=== PATIENT | male | born 1975 | race Caucasian/White ===

== ENCOUNTER 2023-08-07 11:51 | Emergency (ER) | payer OTHER, SELFPAY ==
--- NOTE | 2023-08-07 12:29 | ED.URI ---
HPI - URI/Sore Throat General Chief Complaint: General Medical Stated Complaint: cold like symptoms Time Seen by Provider: 08/07/23 12:53 Source: patient and RN notes reviewed Mode of arrival: ambulatory Limitations: no limitations History of Present Illness HPI Narrative: This is a 48-year-old male, with no known medical problems, presenting to the emergency department complaints of cough, sore throat, headache and sinus congestion x4 days. Patient reports that the headache does not worsened with leaning forward. He has been taking DayQuil which provides him with some relief. 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 He denies any fevers, chills, chest pain, shortness of breath, abdominal pain, nausea, vomiting or diarrhea. No other complaints or concerns at this time. MD elicited complaint: cough, sore throat and nasal congestion Consistency: constant Severity: moderate Description of mucous: clear and watery Able to tolerate fluids by mouth: Yes Exacerbating factors: nothing Relieving factors: OTC cold medicine Associated symptoms: headache, rhinorrhea, nasal congestion and sore throat Treatments prior to arrival: cold medicine Related Data Previous Rx's Medication Instructions Recorded benzonatate 200 mg capsule 200 mg PO TID PRN cough #15 caps 08/07/23 Allergies Allergy/AdvReac Type Severity Reaction Status Date / Time No Known Allergies Allergy Verified 08/07/23 12:30 Review of Systems Review of Systems: Yes all other systems are reviewed and are negative Constitutional: Constitutional: Reports as per [facility] Past Medical History Attestation statement: The following information was validated with the patient. Social History Social History Advance Directives: No Physical Exam Vital Signs: Vital Signs: Last Vital Signs Temp 98 F 08/07/23 12:30 Pulse 98 08/07/23 12:30 Resp 18 08/07/23 12:30 BP 113/77 08/07/23 12:30 Pulse Ox 95 08/07/23 12:30 O2 Del Method Room Air 08/07/23 12:30 BMI result Body Mass Index 34.3 Const: General: cooperative, comfortable and no acute distress Orientation/consciousness: patient oriented x3 Limitations: no limitations HEENT: Other: No frontal, maxillary or ethmoid sinus tenderness palpation No worsening sinus pressure with leaning forward Head: Yes normal to inspection, Yes normocephalic and Yes atraumatic Ears: hearing grossly normal bilaterally and TM's normal bilaterally General nose exam: Normal external nose present Face and sinus: Yes normal facial exam Mouth: Normal oral and palatal mucosa present, oropharynx normal and moist mucous membranes Throat: Yes posterior oropharynx normal, Yes tonsils normal and Yes uvula midline Eyes: General: appearance normal, both eyes and all related structures Eyelids: Yes eyelids normal Conjunctivae: conjunctivae normal Sclerae: sclerae normal Pupils: Equal, round and reactive pupils present EOM: EOMs intact bilaterally Neck: Neck: Yes normal visual inspection, Yes full ROM and Yes no lymphadenopathy Lymphatic: no lymphadenopathy noted Chest: Chest palpation & inspection: normal inspection of the chest Resp: Effort & Inspection: normal respiratory effort and able to speak in complete sentences Auscultation: clear to auscultation bilaterally, no crackles, no rales, no rhonchi and no wheezes Cardio: Rate: regular rate Rhythm: regular rhythm Heart sounds: S1 normal heart sound present and S2 normal heart sound present GI: Inspection: Yes normal to inspection Skin: General skin exam: no rashes or lesions noted Trauma: no lacerations or abrasions Wounds: no wounds Neuro: General: patient oriented x3 and moves all extremities Cranial nerves: Yes Equal, round and reactive pupils present Extrem: General: Yes normal to inspection Right upper extremity: normal to inspection Left upper extremity: normal to inspection Right lower extremity: normal to inspection Left lower extremity: normal to inspection Course Course Course Narrative: This is a rapid medical exam. Deferred additional HPI, ROS, PE to primary provider. 48 yo male with no known medical history here with complaints sore throat, headache, cough x several days. Took home covid test which was negative. Will send viral testing, VSS Medical Decision Making Medical Decision Making MDM Narrative: This is a 48-year-old male, with no known medical problems, presenting to the emergency department for evaluation of cough, sore throat, headaches, and sinus pressure x4 days. On arrival, vital signs within normal limits. Patient is nontoxic appearing. Patient has no frontal, maxillary or ethmoid sinus tenderness palpation. Headache does not worsened with leaning forward. Lungs clear to auscultation bilaterally, oropharynx normal. TMs unremarkable. He is neurologically intact. Differential diagnoses include influenza, COVID, flu, strep pharyngitis. Less likely peritonsillar abscess, pneumonia. Discussed with patient that his symptoms are likely viral in nature. Discussed that he does not need antibiotics at this time however very important to use [id number] decongestants like Sudafed PE or nasal sprays, he declines wanting a prescription for these at this time. Patient given Tessalon Perles to be taken as needed. Discussed the importance of staying well hydrated, getting plenty of rest. He understands and agrees with plan. Patient stable for discharge Differential Diagnosis Differential Diagnoses: The differential diagnosis associated with the presentation includes See above Lab Data MDM Lab Attestation statement: I reviewed the patient's lab results. Negative influenza, RSV, COVID and strep Labs: Lab Results 08/07/23 Range/Units 12:36 Influenza Type A (PCR) NEGATIVE (Negative) Influenza Type B (PCR) NEGATIVE (Negative) RSV RNA Qual (PCR) NEGATIVE (Negative) SARS-CoV-2 RNA (RT-PCR) NEGATIVE (Negative) S. pyogenes GrpA ALEXANDER Negative (Negative) Discharge Plan Discharge Clinical Impression: Acute upper respiratory infection Patient Disposition: Home, Self-Care Instructions: Upper Respiratory Infection (ED) Additional Instructions: You were seen in the emergency department due to cough, sore throat, headache and sinus pressure. You tested negative for COVID, flu, RSV, and strep throat. Your physical exam was reassuring today. You likely have a virus, which take several days to get better. You do not need antibiotics at this time. It is very important to get plenty of rest, drink plenty of fluids and treat your symptoms. Taking medication like Sudafed PE, worse sinus decongestants can help you with your congestion. I am also recommending you alternate between Tylenol and Motrin as needed. I am prescribing you a cough medicine, this is called Tessalon, take this as needed for cough. Any new or worsening symptoms occur including but not limited to chest pain or shortness of breath, please return for re-evaluation. Prescriptions: New benzonatate 200 mg capsule 200 mg PO TID PRN (Reason: cough) Qty: 15 0RF Stand Alone Forms: Work/School Release
[2023-08-07 12:30] VITALS: BP 113/77; PULSE 98; RESP 18; TEMP 36.6; O2SAT 95; BMI 34.3
[2023-08-07 12:57] LABS: IDNOW Serial# 08D9AD1C; Strep A Nucleic Acid Negative (Negative)
[2023-08-07 13:27] LABS: Influenza A PCR NEGATIVE (Negative); Influenza B PCR NEGATIVE (Negative); Resp Syncy Virus RNA Qual PCR NEGATIVE (Negative); SARS COV2 PCR INHOUSE NEGATIVE (Negative)
== END 2023-08-07 14:25 | disposition home or self-care (01) ==
PROVIDERS: Nurse Practitioner Family; Emergency Provider Emergency Medicine
DX: J06.9 Acute upper respiratory infection, unspecified (principal); R05.9 Cough, unspecified; J02.9 Acute pharyngitis, unspecified; R51.9 Headache, unspecified; Z11.52 Encounter for screening for COVID-19; Z20.828 Contact with and (suspected) exposure to other viral communicable diseases
CPT/HCPCS: 0241U; 87651; 99282; 99283

== ENCOUNTER 2023-09-01 15:40 | Outpatient (REF) | payer OTHER, SELFPAY | END 2023-09-01 15:41 | disposition home or self-care (01) | LOC: HO.MRI 15:40 | PROVIDERS: Visit Provider Emergency Medicine | DX: Z13.89 Encounter for screening for other disorder (principal) ==

== ENCOUNTER 2023-10-03 14:25 | Outpatient (REF) | payer OTHER, SELFPAY ==
--- NOTE | ~2023-10-03 | CT_ITS ---
EXAMINATION: CT HEAD WITHOUT CONTRAST CLINICAL INFORMATION: Syncope and collapse COMPARISON: None available. TECHNIQUE: Contiguous axial imaging was performed from the skull base to vertex without intravenous administration of contrast. This CT examination was performed using dose optimization techniques as appropriate, variously including the following: *Automated exposure control *Adjustment of mA and/or kV according to patient size (this includes techniques or standardized protocols for targeted exams where dose is matched to indication/reason for exam; i.e. extremities or head) *Use of iterative reconstruction technique DLP: 804 mGy-cm FINDINGS: The ventricles and sulci are normal in size and configuration. No acute hemorrhage, mass effect or shift is evident. Be-white differentiation is maintained. In the posterior fossa, the brainstem, cerebellum and fourth ventricle image normally. The orbits and calvarium are intact. The paranasal sinuses and mastoid air cells are well pneumatized and clear. CT/CT head/brain wo IV con IMPRESSION: 1. Unremarkable noncontrast brain CT. No acute hemorrhage, mass effect or shift.
== END 2023-10-03 14:26 | disposition home or self-care (01) ==
LOC: HO.CT 14:25
PROVIDERS: PCP Family Medicine; Visit Provider Family Medicine
DX: R55 Syncope and collapse (principal)
CPT/HCPCS: 70450

== ENCOUNTER 2023-10-05 09:00 | Emergency (ER) | payer OTHER, SELFPAY ==
--- NOTE | ~2023-10-05 | CT_ITS ---
EXAMINATION: CT scan left shoulder was performed without contrast CLINICAL INFORMATION: Left arm pain status post fall. COMPARISON: X-ray the left shoulder performed same day TECHNIQUE: CT scan left shoulder was performed without contrast with reconstruction imaging performed at the acquisition workstation. FINDINGS: Glenohumeral joint: Normal. Acromioclavicular joint: Small well-corticated ossification along the superior aspect of the AC joint likely sequela of degenerative change or old partial tearing of the capsule. AC joint otherwise unremarkable. No acute abnormality. No fracture. No joint effusion. Surrounding bone and soft tissues normal. CT/CT shoulder LT wo IV con IMPRESSION: 1. No acute abnormality. 2. Small well-corticated ossification along the superior aspect of the AC joint likely sequela of degenerative change or old partial tearing of the capsule.
--- NOTE | ~2023-10-05 | XR_ITS ---
EXAMINATION: XR SHOULDER, LEFT CLINICAL INFORMATION: Fall limited range of motion COMPARISON: None available. TECHNIQUE: AP external rotation, Grashey, scapular Y, and axillary views of the left shoulder. FINDINGS: The bones and soft tissues are normal. No fracture. Glenohumeral and acromioclavicular alignment is anatomic with normal joint space. No abnormal soft tissue calcifications. XR/XR shoulder LT min 2V IMPRESSION: Normal left shoulder.
[2023-10-05 09:04] VITALS: BP 125/77; PULSE 80; RESP 19; TEMP 36.6; O2SAT 99; BMI 34.4
--- NOTE | 2023-10-05 09:25 | ED.EXTPRO ---
HPI - Extremity Problem General Chief complaint: Extremity Injury, Upper Stated complaint: Fall/L shoulder pain leg pain Time Seen by Provider: 10/05/23 09:10 Source: patient, RN notes reviewed and old records reviewed Mode of arrival: ambulatory Limitations: no limitations History of Present Illness HPI Narrative: 48 year old right hand dominant male with no significant pmhx presents to the ED today for evaluation of left shoulder pain s/p mechanical fall 3 days ago. Per patient, he slipped and fell while in the shower, landing on the left side of his body. Denies head strike or LOC. Not on anticoagulation. Endorses left rotator cuff tear identified 6 months ago while at PCPs office for corticosteroid injections. He was contacted for outpatient MRI however has not scheduled this as his pain has been fairly well controlled. He admits that since the fall, he has been unable to fully raise his left arm due to his shoulder pain. Reports taking Aleve at 0800 this morning prior to arrival. Denies numbness/tingling/weakness of LUQ. Related Data Previous Rx's ?Medication ?Instructions ?Recorded benzonatate 200 mg capsule 200 mg PO TID PRN cough #15 caps 08/07/23 cyclobenzaprine 5 mg tablet 5 mg PO Q8H PRN muscle spasm #10 10/05/23 tabs lidocaine 5 % topical patch 1 patch topical DAILY #15 ea 10/05/23 (Lidoderm) naproxen 500 mg tablet 500 mg PO Q8-12H PRN pain (scale 10/05/23 score 4-6) #14 tabs Allergies Allergy/AdvReac Type Severity Reaction Status Date / Time No Known Allergies Allergy Verified 10/05/23 09:05 Review of Systems Review of Systems: Constitutional: No fever, chills, fatigue, night sweats, weight changes ENT/Mouth: No ear pain, hearing loss, nasal congestion, sinus pain, rhinorrhea, sore throat Eyes: No eye pain, swelling, redness, vision changes, discharge Cardio: No chest pain, palpitations, GUTHRIE, orthopnea, peripheral edema Pulm: No SOB, cough, sputum, wheezing, dyspnea, hemoptysis GI: No nausea, vomiting, hematemesis, abdominal pain, diarrhea, constipation, hematochezia, melena : No irregular bleeding, dysuria, frequency, urgency, hesitancy, hematuria, flank pain, urinary flow changes, urinary incontinence or retention MSK: No back pain, neck pain, joint pain, myalgias, +left shoulder pain Skin: No lesions, rashes Neuro: No weakness, numbness, paresthesias, LOC, dizziness, headache Psych: No anxiety/panic, depression, SI/HI, AH/VH All other systems reviewed and are negative. REPLACED BY [facility] Past Medical History Attestation statement: The following information was validated with the patient. Source: old records reviewed and nursing notes reviewed Social History Social History Advance Directives: No Advance Directives Information Provided: No Physical Exam Vital Signs: Vital Signs: Last Vital Signs Temp 96.8 F 10/05/23 11:39 Pulse 63 10/05/23 11:39 Resp 16 10/05/23 11:39 BP 133/85 10/05/23 11:39 Pulse Ox 99 10/05/23 11:39 O2 Del Method Room Air 10/05/23 11:39 BMI result Body Mass Index 34.4 Vital signs stable Const: General: cooperative, healthy appearing, comfortable and no acute distress Orientation/consciousness: patient oriented x3 Limitations: no limitations HEENT: Head: Yes normal to inspection, Yes No palpable skull fracture present, Yes normocephalic, Yes atraumatic, No Jasso's sign, No raccoon eyes and No periorbital ecchymosis Eyes: General: appearance normal, both eyes and all related structures Conjunctivae: conjunctivae normal Sclerae: sclerae normal Pupils: Equal, round and reactive pupils present Neck: Other: No midline cervical spinous tenderness or step-off deformity Neck: Yes normal visual inspection, Yes full ROM and Yes no lymphadenopathy Chest: Chest palpation & inspection: normal inspection of the chest and normal palpation of entire chest wall Resp: Effort & Inspection: normal respiratory effort and able to speak in complete sentences Auscultation: clear to auscultation bilaterally Cardio: Rate: regular rate Rhythm: regular rhythm GI: Inspection: Yes normal to inspection and No abdominal wall ecchymosis Back/Spine/Pelvis: Other: No midline spinous tenderness or step off deformity. No paraspinal muscle tenderness. Skin: General skin exam: no rashes or lesions noted Neuro: General: patient oriented x3, gait normal and no focal motor deficits Cranial nerves: Yes Equal, round and reactive pupils present Extrem: Other: + left shoulder without overlying skin changes, joint edema or deformity. Nontender to palpation over the glenohumeral joint, AC joint, or clavicle. No palpable deformity, warmth or fluctuance. Limited range of motion to abduction of left shoulder. Can only raise left arm about 75? before pain is elicited. Left shoulder pain elicited with abduction against resistance. Tax Evaluator strength intact. 2+ radial pulse intact. General: Yes normal to inspection and Yes capillary refill normal Course Course Course Narrative: 1149-- x-ray of left shoulder ordered prior to my assumption of care does not demonstrate acute fracture or dislocation. Given patient's history and physical exam findings, CTA of left shoulder was ordered to assess for possible ligament/tendon injury. CT left shoulder does not demonstrate acute fracture however does show a small well corticated ossification along the superior aspect of the AC joint likely sequela of degenerative change or old partial tearing of the capsule. This correlates with known rotator cuff injury. Will place patient in shoulder sling. Advised him to follow-up with PCP and Orthopedics as he will require outpatient MRI and likely surgery. He expresses understanding and will call tomorrow. Patient has remained stable throughout ED visit today. Discussed worrisome signs and symptoms and when to return to the ED. All questions answered at this time. Patient is agreeable with disposition and stable for discharge. Medications Administered Discontinued Medications Generic Name Dose Route Start Last Admin Trade Name Freq PRN Reason Stop Dose Admin Acetaminophen 975 mg 10/05/23 09:46 10/05/23 09:56 Acetaminophen 325 Mg Tablet PO 10/05/23 09:47 975 mg ONCE ONE Administration Lidocaine 1 patch 10/05/23 09:46 10/05/23 09:56 Lidocaine 4 % Patch Adh..Patch TRANSDERMA 10/05/23 09:47 1 patch ONCE ONE Administration Protocol Medical Decision Making Medical Decision Making MDM Narrative: 48 year old right hand dominant male with no significant pmhx presents to the ED today for evaluation of left shoulder pain s/p mechanical fall 3 days ago. Vital signs stable. He is nontoxic-appearing and in no acute distress. left shoulder without overlying skin changes, joint edema or deformity. Nontender to palpation over the glenohumeral joint, AC joint, or clavicle. No palpable deformity, warmth or fluctuance. Limited range of motion to abduction of left shoulder. Can only raise left arm about 75? before pain is elicited. Left shoulder pain elicited with abduction against resistance. Tax Evaluator strength intact. 2+ radial pulse intact. Differential diagnosis includes fracture, dislocation, contusion, ligamentous/tendon injury, arthritis. Low suspicion for neurovascular compromise, threat to limb, compartment syndrome. Plan for imaging and pain control. Differential Diagnosis Differential Diagnoses: The differential diagnosis associated with the presentation includes as above. Admission/Observation Not indicated Independent Interpretation I performed an independent interpretation of an: Plain X-Ray and CT Scan Interpretation: X-ray left shoulder does not demonstrate fracture, agree with radiologist's interpretation. CT left shoulder does not demonstrate fracture, agree with radiologist's interpretation. Radiology Impression Discussion of test interpretation with radiology: I have reviewed the radiologist's reading. Radiologist Impression: EXAMINATION: XR SHOULDER, LEFT CLINICAL INFORMATION: Fall limited range of motion COMPARISON: None available. TECHNIQUE: AP external rotation, Grashey, scapular Y, and axillary views of the left shoulder. FINDINGS: The bones and soft tissues are normal. No fracture. Glenohumeral and acromioclavicular alignment is anatomic with normal joint space. No abnormal soft tissue calcifications. XR/XR shoulder LT min 2V IMPRESSION: Normal left shoulder. EXAMINATION: CT scan left shoulder was performed without contrast CLINICAL INFORMATION: Left arm pain status post fall. COMPARISON: X-ray the left shoulder performed same day TECHNIQUE: CT scan left shoulder was performed without contrast with reconstruction imaging performed at the acquisition workstation. FINDINGS: Glenohumeral joint: Normal. Acromioclavicular joint: Small well-corticated ossification along the superior aspect of the AC joint likely sequela of degenerative change or old partial tearing of the capsule. AC joint otherwise unremarkable. No acute abnormality. No fracture. No joint effusion. Surrounding bone and soft tissues normal. CT/CT shoulder LT wo IV con IMPRESSION: 1. No acute abnormality. 2. Small well-corticated ossification along the superior aspect of the AC joint likely sequela of degenerative change or old partial tearing of the capsule. External Record Review External record reviewed: Inpatient record Prescription Management I considered prescription management with: Pain Medication Chronic Conditions Patient?s care impacted by: Other (Torn rotator cuff) Social Determinants Patient?s care significantly limited by Social Determinants of Health including: Other Social Determinant of Health Procedures Orthopedic Splinting/Casting Injury #1: Side: left Upper Extremity Injury Location: shoulder Upper Extremity Immobilizer: sling/shoulder immobilizer Critical Care Time Critical Care Time Critical Care Time: No Discharge Plan Discharge Clinical Impression: Sprain of left shoulder Patient Disposition: Home, Self-Care Instructions: Shoulder Sprain (ED) Additional Instructions: Your imaging studies today did not show acute fracture. You likely have a rotator cuff injury. You have been provided with a sling. Make sure you are taking the arm out of the sling and moving it around throughout the day to prevent frozen shoulder. Avoid lifting. Use ice several times per day for 20 minutes at a time for the next 48 hours and then change to heat. Flexeril is a muscle relaxer. Take this at night as it makes you drowsy. Do not drive, drink alcohol, or operate machinery while taking it. Naproxen is an anti-inflammatory / pain medication. Take with food. Do not take this with Ibuprofen or other NSAIDs as this may cause increased risk of GI bleeding. Lidoderm patches are numbing patches. Apply to painful areas. In addition you may take Tylenol at home. Please follow-up with your primary care provider for outpatient MRI and further treatment. If your pain worsens, if you develop new numbness, tingling call 911 or return to the ER for evaluation. Prescriptions: New cyclobenzaprine 5 mg tablet 5 mg PO Q8H PRN (Reason: muscle spasm) Qty: 10 0RF naproxen 500 mg tablet 500 mg PO Q8-12H PRN (Reason: pain (scale score 4-6)) Qty: 14 0RF lidocaine [Lidoderm] 5 % adhesive patch,medicated 1 patch topical DAILY Qty: 15 0RF Rx Instructions: leave on most painful area for up to 12 hrs No Action benzonatate 200 mg capsule 200 mg PO TID PRN (Reason: cough) Qty: 15 0RF Referrals: Nancy Avalos MD [Primary Care Provider] - Stand Alone Forms: Work/School Release Interventions: ED Discharge Assessment Last Done: 10/05/23 11:39 Discharge Date/Time: 10/05/23 11:40 Print Language: Chinese
[2023-10-05] MEDS: Lidocaine 4 % Patch ADH..PATCH 1 PATCH TRANSDERMA (09:56)
[2023-10-05] MEDS: Acetaminophen 325 MG TABLET 975 MG PO (09:56)
[2023-10-05 11:39] VITALS: BP 133/85; PULSE 63; RESP 16; TEMP 36; O2SAT 99
== END 2023-10-05 11:40 | disposition home or self-care (01) ==
PROVIDERS: Emergency Provider Emergency Medicine; PCP Family Medicine
DX: S43.402A Unspecified sprain of left shoulder joint, initial encounter (principal); M25.512 Pain in left shoulder; W01.0XXA Fall on same level from slipping, tripping and stumbling without subsequent striking against object, initial encounter; Y93.9 Activity, unspecified; Y92.9 Unspecified place or not applicable; Y99.8 Other external cause status
CPT/HCPCS: 29125; 73030; 73200; 99283; 99284

== ENCOUNTER 2023-10-14 13:56 | Outpatient (REF) | payer OTHER, SELFPAY ==
--- NOTE | ~2023-10-14 | US_ITS ---
EXAMINATION: US ABDOMEN COMPLETE CLINICAL INFORMATION: Fatty liver. COMPARISON: None available. TECHNIQUE: Real-time imaging of the abdominal viscera. FINDINGS: PANCREAS: Visualized portions of the pancreas are unremarkable however portions are obscured by bowel gas limiting evaluation. ABDOMINAL AORTA: The proximal, mid, and distal segments are normal in caliber. INFERIOR VENA CAVA: Visualized portions are normal. LIVER: The liver is normal in size. The liver contour is normal. Mildly increased hepatic echogenicity which can be seen in the setting of hepatic steatosis or underlying liver disease. No focal hepatic lesion. There is no intrahepatic biliary duct dilatation seen. GALLBLADDER: Normal. The gallbladder is physiologically distended without evidence of stones, sludge, polyps, wall thickening or pericholecystic fluid. COMMON BILE DUCT: Normal in caliber measuring 0.4 cm in diameter. RIGHT KIDNEY: Normal. No hydronephrosis. No renal calculi or focal parenchymal lesions. The kidney measures 11.2 cm in maximum dimension. LEFT KIDNEY: Normal. No hydronephrosis. No renal calculi or focal parenchymal lesions. The kidney measures 11.3 cm in maximum dimension. SPLEEN: The spleen is enlarged. The spleen measures 13.0 cm in maximum dimension. FREE FLUID: None. US/US abdomen complete IMPRESSION: 1. Mildly increased hepatic echogenicity which can be seen in the setting of hepatic steatosis or underlying liver disease. 2. Mild splenomegaly.
== END 2023-10-14 13:57 | disposition home or self-care (01) ==
LOC: HO.US 13:56
PROVIDERS: PCP Family Medicine; Visit Provider Family Medicine
DX: K76.0 Fatty (change of) liver, not elsewhere classified (principal)
CPT/HCPCS: 76700

== ENCOUNTER → 2023-10-22 14:27 | Outpatient (REF) | payer OTHER, SELFPAY ==
--- NOTE | 2023-10-22 14:30 | CA_ITS ---
Transthoracic Echocardiogram Patient (Last, First, Middle): Darrell Kilgore P Gender: Male Date of : 1975 Age: 48 Procedure Date: 10/22/2023 Procedure Type: Transthoracic Echocardiogram Location: OP Height: 175.26 cm Weight: 108.86 kg BSA: 2.23 m2 Heart Rate: bpm BP: 122 / 78 mmHg Plate Shear Operator: TJ Referring MD: Nancy Avalos MD Rn Paralegal: Edmar Pillai MD Symptoms: R55 SYNCOPE COLLAPSE Study Quality: Fair ECG Rhythm: Sinus Conclusions: - Normal study Findings Left Ventricle Normal left ventricular size, thickness, and systolic function. The visually estimated ejection fraction is between 60-65%. Diastolic function is normal for age. Peak GLS is -18.5%, within normal limits. Right Ventricle Normal right ventricular cavity size and systolic function. Atria Both atria are normal in size. There is no evidence of interatrial shunt. Aortic Valve The aortic valve structure and function is likely normal. There is no aortic valve stenosis. There is no aortic valve regurgitation. Mitral Valve Normal mitral valve structure and function. There is trace mitral valve regurgitation. There is no mitral valve stenosis. Pulmonic Valve The pulmonic valve is likely normal. Tricuspid Valve Likely normal tricuspid valve structure and function. Tricuspid regurgitation envelope is inadequate for calculation of right ventricular systolic pressure. Normal right atrial pressure. Great Vessels The pulmonary artery was not well visualized. There is no dilatation of the ascending aorta measuring 3.20 cm. Venous The inferior vena cava is normal in size and collapses greater than 50% with inspiration. Pericardium/Pleural There is no evidence of pericardial effusion. Prior Study Comparison No prior study available for comparison. Measurements 2D Linear Measurements IVSd: 0.88 0.6-0.9/0.6-1.0 cm LVIDd: 5.23 3.9-5.3/4.2-5.9 cm LVIDd Index: 2.35 2.4-3.2/2.2-3.1 cm/m2 LVIDs: 3.31 2.0-3.6 cm LVPWd: 1.04 0.7-1.1 cm LA Diam: 3.40 2.7-3.8/3.0-4.0 cm LAIDs Index: 1.52 1.5-2.3 cm/m2 LV Mass: 231.69 67-162/88-224 g LV Mass Index: 103.90 43-95/49-115 g/m2 LVOT Diam: 2.30 3.0+(-)1.3 cm 2D Systolic Function EF 4C: 61.50 >55% EF 2C: 59.80 >55% EF BiP: 61.10 >55% Mitral Valve MV Pk E: 0.77 MV PK A: 0.72 MV Decel Time: 267.00 E/A: 1.10 E'Lateral: 11.00 E'Medial: 8.59 E/E' Med: 9.00 E/E' Lat: 7.00 PHT: 78.00 MVA PHT: 2.82 Decel Gillespie: 2.89 Aortic Valve AoV Pk Werner: 1.36 AoV Mn Werner: 0.97 AoV VTI: 0.29 AoV Pk Grad: 7.00 Aov Mn Grad: 4.00 HORTENSIA Cont.VTI: 3.17 LVOT LVOT Pk Werner: 1.08 LVOT Mn Werner: 0.70 LVOT VTI: 0.22 LVOT Pk Grad: 5.00 LVOT Mn Grad: 2.00 LVOT Diam: 2.30 LVOT Area: 4.15 Diastolic Function MV Pk E: 0.77 MV Pk A: 0.72 E/A: 1.10 E'Medial: 8.59 E/E' Med: 9.00 E' Laterial: 11.00 E/E' Lat: 7.00 Right Ventricle TAPSE (mm): 19.90 TVS' Werner: 14.10 Tricuspid Valve RA Press: 3.00 Great Vessels Aorta Sinus of Valsalva: 3.98 2.0-3.[address] Ridge: 2.05 1.7-3.4 cm Ao Asc: 3.20 2.1-3.4 cm Updated in Other Vendor System with Status of Final Edmar Pillai MD electronically signed on 10/22/2023 4:15:21 PM with status of Final
== END ==
LOC: HO.CARD 14:27
PROVIDERS: PCP Family Medicine; Visit Provider Family Medicine
DX: R55 Syncope and collapse (principal)
CPT/HCPCS: 93306; 93356

== ENCOUNTER → 2023-10-22 14:30 | Outpatient (BNV) | payer OTHER, SELFPAY | PROVIDERS: PCP Family Medicine; Visit Provider Internal Medicine Cardiovascular Disease | DX: R55 Syncope and collapse (principal) | CPT/HCPCS: 93306; 93356 ==

== ENCOUNTER 2024-01-27 11:56 | Outpatient (REF) | payer OTHER, SELFPAY ==
[2024-01-31 14:29] LABS: HLA B27 Negative (Negative)
== END 2024-01-27 11:57 | disposition home or self-care (01) ==
LOC: HO.LAB 11:56
PROVIDERS: PCP Family Medicine; Visit Provider Family Medicine
DX: R21 Rash and other nonspecific skin eruption (principal)
CPT/HCPCS: 36415; 86812

== ENCOUNTER 2024-04-09 06:44 | Outpatient (REF) | payer OTHER, SELFPAY ==
[2024-04-09 07:08] LABS: MANUAL DIFF FLAG NO
[2024-04-09 07:53] LABS: Basophils Percent Auto 0.8 % (0-2); Eosinophils Absolute Auto 0.1 X10*3/uL (0.0-0.4); Eosinophils Percent Auto 1.9 % (0-4); Hematocrit 42.5 % (42.0-52.0); Hemoglobin 15.3 g/dl (14.0-18.0); Imm Gran Abs Auto 0.02 X10*3/uL (0.00-0.03); Imm Gran Pct Auto 0.4 % (0.0-0.4); Lymphocytes Absolute Auto 1.7 X10*3/uL (1.2-4.9); Lymphocytes Percent Auto 34.1 % (20-40); Mean Corpuscular Hemoglobin 32.7 pg (27.0-33.0); Mean Corpuscular Volume 90.8 fL (80.0-98.0); Mean Platelet Volume 8.9 fL (9.4-12.4); Monocytes Absolute Auto 0.5 X10*3/uL (0.1-1.2); Monocytes Percent Auto 9.7 % (2-11); Neutrophils Absolute Auto 2.6 x10*3/uL (2.0-8.3); Neutrophils Percent Auto 53.1 % (45-73); Platelet Count 183 X10*3/uL (160-400); Red Blood Count 4.68 X10*6/uL (4.60-5.80); Red Cell Distribution Width 11.6 % (11.0-16.0); White Blood Count 4.8 X10*3/uL (4.8-10.8)
[2024-04-09 08:17] LABS: Alanine Aminotransferase 29 U/L (0-40); Albumin Level 4.5 g/dL (3.5-5.0); Alkaline Phosphatase 57 U/L (39-117); Anion Gap 12 (12-20); Aspartate Amino Transferase 27 U/L (5-37); Bilirubin Direct 0.3 mg/dL (0.0-0.5); Blood Urea Nitrogen 17 mg/dL (9-16); Calcium 9.5 mg/dL (8.4-10.2); Carbon Dioxide 24 mmol/L (22-29); Chloride 106 mmol/L (96-108); Cholesterol 247 mg/dL (<200); Estimated Glomerular Filt Rate > 60; Glucose Random 122 mg/dL (60-115); HDL Cholesterol 55 mg/dL (>40); LDL Cholesterol Calculated 173 mg/dL (<100); Sodium 138 mmol/L (135-145); Total Protein 7.5 g/dL (6.5-8.0); Triglycerides 95 mg/dL (<150)
[2024-04-09 08:47] LABS: HBc Num1 0.08 S/CO (0.00-0.79); HBsAGNum1 0.26 S/CO (0.00-0.99); Hepatitis B Core Antibody Nonreactive (Nonreactive); Hepatitis B Surface Antigen Negative (Negative); ~HepC Num1 0.14 S/CO (0.00-0.79); ~Hepatitis B Surface Antibody NONREACTIVE (Nonreactive); ~Hepatitis C Antibody Nonreactive (Nonreactive)
[2024-04-09 09:41] LABS: Reflex LDLD? No
[2024-04-12 18:14] LABS: TS Negative Control Passed; TS Panel A 0; TS Panel B 0; TS Positive Control Passed; TSpotTB Negative (Negative)
== END 2024-04-09 06:45 | disposition home or self-care (01) ==
LOC: HO.LAB 06:44
PROVIDERS: PCP Family Medicine; Visit Provider Physician Assistant
DX: L40.0 Psoriasis vulgaris (principal)
CPT/HCPCS: 36415; 80048; 80061; 80076; 85025; 86481; 86704; 86706; 86803; 87340

== ENCOUNTER → 2024-06-30 08:11 | Outpatient (BNVA) | payer OTHER, SELFPAY | PROVIDERS: PCP Family Medicine; Visit Provider Internal Medicine | DX: Z13.89 Encounter for screening for other disorder (principal) | CPT/HCPCS: 99202 ==

== ENCOUNTER → 2024-07-07 10:05 | Outpatient (BNVA) | payer OTHER, SELFPAY | PROVIDERS: PCP Family Medicine; Visit Provider Internal Medicine | DX: Z13.89 Encounter for screening for other disorder (principal) | CPT/HCPCS: 99213 ==

== ENCOUNTER 2024-08-02 07:56 | Emergency (ER) | payer OTHER, SELFPAY ==
--- NOTE | ~2024-08-02 | XR_ITS ---
CLINICAL HISTORY: cough, fever 1 view chest x-ray Comparison: None Findings: No consolidation or effusion. Normal size heart. No acute fracture. IMPRESSION: 1. No acute cardiopulmonary abnormality. This document has been electronically signed by: Velvet Angeles on 08/02/2024 08:44:00
[2024-08-02 08:06] VITALS: BP 95/63; PULSE 84; RESP 20; TEMP 36.4; O2SAT 99; BMI 33.0
--- NOTE | 2024-08-02 08:21 | ED_ITS ---
HPI - General Adult General Chief complaint: General Medical Stated complaint: Flu Symptoms Time Seen by Provider: 08/02/24 08:10 Source: patient Mode of arrival: ambulatory Limitations: no limitations History of Present Illness ED Provider: ASH CHARLTON narrative: 49 yo male with PMH of HTN has been taking his medications, since Friday body aches, chills, cough, nausea, not eating, very tired and dark urine. 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 No recent travel or procedures. He states he does have loose stools as well. No chest or abdominal pain reported. MD complaint: viral syndrome Onset (ago): day(s) (since Friday) Location: head, mouth, back, left, right, upper extremity and lower extremity Radiation: non-radiation Severity: moderate Quality: aching Pain Consistency: intermittent Relieving factors: rest Exacerbating factors: movement Associated symptoms: cough, fever/chills, loss of appetite, malaise and weakness Treatments prior to arrival: none Related Data Previous Rx's ?Medication ?Instructions ?Recorded benzonatate 200 mg capsule 200 mg PO TID PRN cough #15 caps 08/07/23 cyclobenzaprine 5 mg tablet 5 mg PO Q8H PRN muscle spasm #10 10/05/23 tabs lidocaine 5 % topical patch 1 patch topical DAILY #15 ea 10/05/23 (Lidoderm) naproxen 500 mg tablet 500 mg PO Q8-12H PRN pain (scale 10/05/23 score 4-6) #14 tabs Allergies Allergy/AdvReac Type Severity Reaction Status Date / Time No Known Allergies Allergy Verified 08/02/24 08:09 Review of Systems 2 Review of Systems: Constitutional : pos fatigue, pos Fever, pos Chills ENT/Mouth : No sore throat, No Rhinorrhea Eyes: No Swelling, No Redness Cardiovascular : No Chest Pain, No SOB, No Edema Respiratory : pos Cough, No Sputum, No Wheezing Gastrointestinal : Positive Nausea, no Vomiting, positive Diarrhea, no abdominal Pain, No Hematochezia, No Melena Genitourinary : No Dysuria, No Urinary Frequency, posHematuria, No Urgency Musculoskeletal : No joint pain, No Myalgias, No Joint Swelling Skin : No Skin Lesions, No rash Neuro : pos Weakness, No Numbness, No Dizziness, No Headache All other systems reviewed and are negative. COUNTS INCLUDE 234 BEDS AT THE [facility] Past Medical History Attestation statement: The following information was validated with the patient. Source: old records reviewed Medical History HTN (hypertension) Social History Social History Smoked in Last 30 Days: No Use of substances other than those prescribed or required for medical reasons: No Advance Directives: No Advance Directives Information Provided: Yes Physical Exam ED Vital Signs: Vital Signs - 24 hr 08/02/24 08:06 08/02/24 08:53 Temperature 97.6 F Pulse Rate 84 84 Respiratory Rate 20 19 Blood Pressure 95/63 Pulse Oximetry 99 Oxygen Delivery Method Room Air BMI result Body Mass Index 33.0 Appearance: Alert. Oriented X3. No acute distress. Eyes: Pupils equal, round and reactive to light. ENT: Pharynx no erythema/exudates, dry MM Neck: Normal inspection. Neck supple. CVS: Normal heart rate and rhythm. Pulses normal. Respiratory: No respiratory distress. Breath sounds normal. Abdomen: Soft and non-tender. Skin: Skin warm and dry. Normal skin color. Normal skin turgor. Extremities: No lower extremity edema. No calf ttp Neuro: Oriented X 3. No motor deficit. No sensory deficit. CN2-12 intact Medications Administered Discontinued Medications Generic Name Dose Route Start Last Admin Trade Name Freq PRN Reason Stop Dose Admin Albuterol Sulfate 2 puff 08/02/24 08:22 08/02/24 08:48 Albuterol Sulfate 90 Mcg 8 Gm Inhaler INHALE 08/02/24 08:23 2 puff ONCE ONE Administration Lactated Ringer's 1,000 mls @ 999 mls/hr 08/02/24 08:20 08/02/24 10:25 Lr IV 08/02/24 09:20 Infused .Q1H1M ONE Infusion Lactated Ringer's 1,000 mls @ 999 mls/hr 08/02/24 08:20 08/02/24 10:25 Lr IV 08/02/24 09:20 Infused .Q1H1M ONE Infusion Medical Decision Making Medical Decision Making MDM Narrative: 49 yo male with PMH of HTN here with c/o viral like URI since Friday but not getting better feels more weak and has dark urine. At this time will obtain basic labs, CPK, IVF x 2L, viral panel, CXR for pneumonia he has slight wheeze will dose with albuterol 2 puffs INH. Differential Diagnosis Differential Diagnoses: The differential diagnosis associated with the presentation includes viral syndrome, myositis, dehydration, CAT Admission/Observation Consideration of admission/observation: Escalation of care including admission/observation considered improved fluids hold BP meds x 3 days recheck with PCP Lab Data MDM Lab Attestation statement: I reviewed the patient's lab results. 08/02/24 08:45 08/02/24 10:54 Labs: Lab Results 08/02/24 08/02/24 08/02/24 Range/Units 08:13 08:45 10:54 WBC 5.6 (4.8-10.8) X10*3/uL RBC 4.45 L (4.60-5.80) X10*6/uL Hgb 14.4 (14.0-18.0) g/dl Hct 39.3 L (42.0-52.0) % MCV 88.3 (80.0-98.0) fL MCH 32.4 (27.0-33.0) pg MCHC 36.6 H (31.0-36.0) g/dl RDW 11.1 (11.0-16.0) % Plt Count 153 L (160-400) X10*3/uL MPV 8.9 L (9.4-12.4) fL Immature Gran % (Auto) 1.1 H (0.0-0.4) % Neut % (Auto) 53.1 (45-73) % Lymph % (Auto) 24.9 (20-40) % Hawkins % (Auto) 19.3 H (2-11) % Eos % (Auto) 1.1 (0-4) % Baso % (Auto) 0.5 (0-2) % Lymph # (Auto) 1.4 (1.2-4.9) X10*3/uL Hawkins # (Auto) 1.1 (0.1-1.2) X10*3/uL Eos # (Auto) 0.1 (0.0-0.4) X10*3/uL Baso # (Auto) 0.0 (0.0-0.2) X10*3/uL Abs Immat Gran (auto) 0.06 H (0.00-0.03) X10*3/uL Absolute Neuts (auto) 3.0 (2.0-8.3) x10*3/uL Absolute Nucleated RBC 0.000 (0.0-0.012) X10*3/uL Nucleated RBC % (auto) 0.0 (0.0-0.2) /100WBC Sodium 133 L 132 L (135-145) mmol/L Potassium 5.1 D 4.1 (3.3-5.1) mmol/L Chloride 99 100 (96-108) mmol/L Carbon Dioxide 22 24 (22-29) mmol/L Anion Gap 17 12 (12-20) BUN 23 H 22 H (9-16) mg/dL Creatinine 1.59 H 1.21 (0.5-1.4) mg/dL Estim Creat Clear Calc 66.6 87.5 Estimated GFR 47 > 60 Random Glucose 115 111 (60-115) mg/dL Calcium 9.6 8.7 D (8.4-10.2) mg/dL Magnesium 2.4 (1.6-2.6) mg/dL Total Bilirubin 1.1 H (0.0-1.0) mg/dL Direct Bilirubin 0.3 (0.0-0.5) mg/dL AST 53 H (5-37) U/L ALT 49 H (0-40) U/L Alkaline Phosphatase 75 (39-117) U/L Total Creatine Kinase 163 (38-174) U/L Total Protein 8.6 H (6.5-8.0) g/dL Albumin 4.2 (3.5-5.0) g/dL Lipase 40 (8-78) U/L Influenza Type A (PCR) POSITIVE A (Negative) Influenza Type B (PCR) NEGATIVE (Negative) RSV RNA Qual (PCR) NEGATIVE (Negative) SARS-CoV-2 RNA (RT-PCR) NEGATIVE (Negative) Independent Interpretation I performed an independent interpretation of an: Plain X-Ray Radiology Impression Discussion of test interpretation with radiology: I have reviewed the radiologist's reading. External Record Review External record reviewed: Outpatient record Discharge Plan Discharge Clinical Impression: Influenza A, Acute dehydration Patient Disposition: Home, Self-Care Instructions: Dehydration (ED), Influenza (ED) Additional Instructions: stay hydrated and drink plenty of fluids return for any worsening symptoms avoid motrin, aleve, ibuprofen okay to take tylenol hold BP medications - lisinopril, amlodipine for 3 days recheck with PCP and follow BP Prescriptions: No Action cyclobenzaprine 5 mg tablet 5 mg PO Q8H PRN (Reason: muscle spasm) Qty: 10 0RF naproxen 500 mg tablet 500 mg PO Q8-12H PRN (Reason: pain (scale score 4-6)) Qty: 14 0RF lidocaine [Lidoderm] 5 % adhesive patch,medicated 1 patch topical DAILY Qty: 15 0RF Rx Instructions: leave on most painful area for up to 12 hrs benzonatate 200 mg capsule 200 mg PO TID PRN (Reason: cough) Qty: 15 0RF Stand Alone Forms: Work/School Release Print Language: South African
[2024-08-02] MEDS: Lactated Ringers 1,000 ML 999 ML IV ×2 (08:46→09:23)
[2024-08-02] MEDS: Albuterol Sulfate 90 MCG 8 GM INHALER 2 PUFF INHALE (08:48)
[2024-08-02 08:53] VITALS: PULSE 84; RESP 19; O2SAT 99
[2024-08-02 08:53] LABS: MANUAL DIFF FLAG NO
[2024-08-02 08:55] LABS: Basophils Percent Auto 0.5 % (0-2); Eosinophils Absolute Auto 0.1 X10*3/uL (0.0-0.4); Eosinophils Percent Auto 1.1 % (0-4); Hematocrit 39.3 % (42.0-52.0); Hemoglobin 14.4 g/dl (14.0-18.0); Imm Gran Abs Auto 0.06 X10*3/uL (0.00-0.03); Imm Gran Pct Auto 1.1 % (0.0-0.4); Lymphocytes Absolute Auto 1.4 X10*3/uL (1.2-4.9); Lymphocytes Percent Auto 24.9 % (20-40); Mean Corpuscular HGB Conc 36.6 g/dl (31.0-36.0); Mean Corpuscular Hemoglobin 32.4 pg (27.0-33.0); Mean Corpuscular Volume 88.3 fL (80.0-98.0); Mean Platelet Volume 8.9 fL (9.4-12.4); Monocytes Absolute Auto 1.1 X10*3/uL (0.1-1.2); Monocytes Percent Auto 19.3 % (2-11); Neutrophils Percent Auto 53.1 % (45-73); Platelet Count 153 X10*3/uL (160-400); Red Blood Count 4.45 X10*6/uL (4.60-5.80); Red Cell Distribution Width 11.1 % (11.0-16.0); White Blood Count 5.6 X10*3/uL (4.8-10.8)
[2024-08-02 08:56] LABS: Influenza A PCR POSITIVE (Negative); Influenza B PCR NEGATIVE (Negative); Resp Syncy Virus RNA Qual PCR NEGATIVE (Negative); SARS COV2 PCR INHOUSE NEGATIVE (Negative)
[2024-08-02 09:18] LABS: Alanine Aminotransferase 49 U/L (0-40); Albumin Level 4.2 g/dL (3.5-5.0); Alkaline Phosphatase 75 U/L (39-117); Anion Gap 17 (12-20); Aspartate Amino Transferase 53 U/L (5-37); Bilirubin Direct 0.3 mg/dL (0.0-0.5); Bilirubin Total 1.1 mg/dL (0.0-1.0); Blood Urea Nitrogen 23 mg/dL (9-16); Calcium 9.6 mg/dL (8.4-10.2); Carbon Dioxide 22 mmol/L (22-29); Chloride 99 mmol/L (96-108); Creatinine Clr Calc Pharmacy 66.6; Estimated Glomerular Filt Rate 47; Glucose Random 115 mg/dL (60-115); Lipase 40 U/L (8-78); Magnesium 2.4 mg/dL (1.6-2.6); Potassium 5.1 mmol/L (3.3-5.1); Sodium 133 mmol/L (135-145); Total Protein 8.6 g/dL (6.5-8.0)
[2024-08-02 11:21] LABS: Anion Gap 12 (12-20); Blood Urea Nitrogen 22 mg/dL (9-16); Calcium 8.7 mg/dL (8.4-10.2); Carbon Dioxide 24 mmol/L (22-29); Chloride 100 mmol/L (96-108); Creatinine Clr Calc Pharmacy 87.5; Estimated Glomerular Filt Rate > 60; Glucose Random 111 mg/dL (60-115); Potassium 4.1 mmol/L (3.3-5.1); Sodium 132 mmol/L (135-145)
[2024-08-02 11:38] VITALS: BP 00/00; PULSE 84; RESP 19; TEMP -17.7; TEMP 0
== END 2024-08-02 11:39 | disposition home or self-care (01) ==
PROVIDERS: Emergency Provider Emergency Medicine; PCP Family Medicine
DX: J10.1 Influenza due to other identified influenza virus with other respiratory manifestations (principal); M79.10 Myalgia, unspecified site; R05.9 Cough, unspecified; R11.0 Nausea; E86.0 Dehydration; R50.9 Fever, unspecified; Z03.818 Encounter for observation for suspected exposure to other biological agents ruled out; Z79.899 Other long term (current) drug therapy
CPT/HCPCS: 0241U; 36415; 71045; 80048; 80076; 82550; 83690; 83735; 85025; 96360; 99284; J7120

== ENCOUNTER → 2024-08-02 08:20 | Outpatient (BNV) | payer SELFPAY | PROVIDERS: Emergency Provider Emergency Medicine; PCP Family Medicine; Visit Provider Radiology Vascular & Interventional Radiology | DX: R05.9 Cough, unspecified (principal); R50.9 Fever, unspecified | CPT/HCPCS: 71045 ==

== ENCOUNTER 2024-09-16 14:25 | Outpatient (RCR) | payer OTHER, SELFPAY ==
--- NOTE | 2024-10-12 10:40 | MHC.OT.DC ---
[address] [phone] F: [phone] Occupational Therapy Discharge Note Patient Name: Darrell Woo Germanfranki Provider: Shaan Gilbert Diagnosis: (R) forearm strain Date of Surgery: Date of Evaluation: 07/19/24 Date of Discharge: Treatments to Date: 12 Cancellations to Date: No Shows to Date: Discharge Status: Discharge Summary: Patient did not return but was progressing well at last appointment. Electronically Signed By: JAIRO Hernandez/Daisha, CLT Reviewed/agree with student documentation: Therapist: Please Sign and return to therapist, thank you for your referral.
== END 2025-04-11 10:44 | disposition home or self-care (01) ==
LOC: HO.OT 14:25
PROVIDERS: PCP Family Medicine; Visit Provider Internal Medicine
DX: S56.911D Strain of unspecified muscles, fascia and tendons at forearm level, right arm, subsequent encounter (principal)
CPT/HCPCS: 97035; 97110; 97140; 97165

== ENCOUNTER 2024-10-08 07:31 | Outpatient (REF) | payer OTHER, SELFPAY ==
[2024-10-08 07:49] LABS: MANUAL DIFF FLAG NO
[2024-10-08 08:26] LABS: Basophils Percent Auto 0.7 % (0-2); Eosinophils Absolute Auto 0.1 X10*3/uL (0.0-0.4); Eosinophils Percent Auto 1.4 % (0-4); Hematocrit 42.7 % (42.0-52.0); Hemoglobin 15.5 g/dl (14.0-18.0); Imm Gran Abs Auto 0.04 X10*3/uL (0.00-0.03); Imm Gran Pct Auto 0.7 % (0.0-0.4); Lymphocytes Absolute Auto 1.7 X10*3/uL (1.2-4.9); Lymphocytes Percent Auto 30.3 % (20-40); Mean Corpuscular HGB Conc 36.3 g/dl (31.0-36.0); Mean Corpuscular Hemoglobin 32.2 pg (27.0-33.0); Mean Corpuscular Volume 88.6 fL (80.0-98.0); Mean Platelet Volume 9.1 fL (9.4-12.4); Monocytes Absolute Auto 0.6 X10*3/uL (0.1-1.2); Monocytes Percent Auto 10.6 % (2-11); Neutrophils Absolute Auto 3.1 x10*3/uL (2.0-8.3); Neutrophils Percent Auto 56.3 % (45-73); Platelet Count 172 X10*3/uL (160-400); Red Blood Count 4.82 X10*6/uL (4.60-5.80); Red Cell Distribution Width 11.8 % (11.0-16.0); White Blood Count 5.6 X10*3/uL (4.8-10.8)
[2024-10-08 08:52] LABS: Alanine Aminotransferase 27 U/L (0-40); Albumin Level 4.5 g/dL (3.5-5.0); Alkaline Phosphatase 64 U/L (39-117); Anion Gap 13 (12-20); Aspartate Amino Transferase 24 U/L (5-37); Bilirubin Direct 0.2 mg/dL (0.0-0.5); Bilirubin Total 0.7 mg/dL (0.0-1.0); Blood Urea Nitrogen 18 mg/dL (9-16); Calcium 9.7 mg/dL (8.4-10.2); Carbon Dioxide 28 mmol/L (22-29); Chloride 104 mmol/L (96-108); Cholesterol 275 mg/dL (<200); Estimated Glomerular Filt Rate > 60; Glucose Random 109 mg/dL (60-115); HDL Cholesterol 59 mg/dL (>40); LDL Cholesterol Calculated 198 mg/dL (<100); Potassium 4.6 mmol/L (3.3-5.1); Sodium 140 mmol/L (135-145); Total Protein 7.7 g/dL (6.5-8.0); Triglycerides 90 mg/dL (<150)
[2024-10-08 10:06] LABS: Reflex LDLD? No
== END 2024-10-08 07:32 | disposition home or self-care (01) ==
LOC: HO.LAB 07:31
PROVIDERS: Visit Provider Physician Assistant
DX: L40.0 Psoriasis vulgaris (principal); Z79.899 Other long term (current) drug therapy
CPT/HCPCS: 36415; 80048; 80061; 80076; 85025

== ENCOUNTER 2025-04-21 06:16 | Outpatient (REF) | payer OTHER, SELFPAY ==
--- OUTSIDE RECORDS SUMMARY | 2025-04-21 06:19 | XMS_ITS | Encounter Summary ---
Author Organization [facility] Address [address] [place] [id number] Phone Care Team Providers Care [employer] Name Role Phone Nancy Avalos MD Primary Care Provider [phone] Nancy Avalos MD Primary Care Provider [phone] Encounter Details Date Type Department Care Team (Late st Contact Info) Description 11/06/2022 Procedure Pass [facility] Endoscopy Admitting Dept Virtual Department [address] [place] [address] Social History Tobacco Use Types Packs/Day Years Used Date Smoking Tobacco: Never Smokeless Tobacco: Never Alcohol Use Standard Drinks/Week Comments Yes 80 (1 standard drink = 0.6 oz pure alcohol) 8-10 beers daily on weekdays and 10-20 beers daily on weekends Education Answer Date Recorded Are you interested in more education? Not on anton e 10/11/2022 Are you concerned about learning? Not on file 10/11/2022 No 10/11/2022 No 10/11/2022 Digital Access Answer Date Recorded No 11/08/2022 No 11/08/2022 No 11/08/2022 Reliable internet access at home? Not on file 11/08/2022 Device with a working camera? 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 It is not the complete legal health record.[facility]
--- OUTSIDE RECORDS SUMMARY | 2025-04-21 06:19 | XMS_ITS | Encounter Summary ---
Author Organization [facility] Address [address] [place] [address] Phone Care Team Providers Care Director Of Managed Services Name Role Phone Nancy Avalos MD Primary Care Provider [phone] Nancy Avalos MD Primary Care Provider [phone] Encounter Details Date Type Department Care Team (Late st Contact Info) Description 09/05/2020 Procedure Pass [facility], [address] [place] [address] Social History Tobacco Use Types Packs/Day Years Used Date Smoking Tobacco: Never Smokeless Tobacco: Never Alcohol Use Standard Drinks/Week Comments Yes 80 (1 standard drink = 0.6 oz pure alcohol) 8-10 beers daily on weekdays and 10-20 beers daily on weekends Sex and Gender Information Value Date Recorded Sex Assigned at Male 06/30/2018 5:27 PM EST Legal Sex Male 9:27 PM EDT Gender Identity Male 06/30/2018 5:27 PM EST Sexual Orientation Not on file 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 Not on file Not on anton e documented as of this encounter Plan of Treatment Not on file documented as of this encounter Visit Diagnoses Not on filedocumented in this encounter Additional Health Concerns Infection Onset Date Last Indicated Resolved Time CoV-Risk 11/09/2021 11/09/2021 11/20/2021 1:22 AM EDT documented as of this encounter Care Teams Director Of Managed Services Relationship Specialty Start Date End Date Nancy Avalos MD PCP - General Family Medicine 06/30/18 01/10/24 Nancy Avalos MD [address] [place] [address] [email or web address] PCP - General Family Medicine 01/11/24 documented as of this encounter Additional Source Comments The information contained in this document represents components of the legal health record. It is not the complete legal health record.[facility]
--- OUTSIDE RECORDS SUMMARY | 2025-04-21 06:19 | XMS_ITS | Encounter Summary ---
Author Organization [facility] Address [address] [facility] [address] [place] [phone] Phone Care Team Providers Care Line Erector Name Role Phone Nancy Avalos MD Primary Care Provider [phone] Nancy Avalos MD Primary Care Provider [phone] Encounter Details Date Type Department Care Team (Latest Contact Info) Description 02/24/2023 Transcribe Orders Virtual Department [address] [place] [address] Roni Cuenca MD [address] [place] [id number] [email or web address] Left shoulder pain, unspecified chronicity (Primary Dx) Social History Tobacco Use Types Packs/Day Years [...] 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 on file Not on anton e documented as of this encounter Plan of Treatment Not on file documented as of this encounter Visit Diagnoses Diagnosis Left shoulder pain, unspecified chronicity- Primary documented in this encounter Care Teams Line Erector Relationship Specialty Start Date End Date Nancy Avalos MD [email or web address] PCP - General Family Medicine 06/30/18 01/10/24 Nancy Avalos MD [address] [place] [address] PCP - General Family Medicine 01/11/24 documented as of this encounter Additional Source Comments The information contained in this document represents components of the legal health record. It is not the complete legal health record.[facility]
--- OUTSIDE RECORDS SUMMARY | 2025-04-21 06:19 | XMS_ITS | Encounter Summary ---
Author Organization [facility] Address [address] [facility] [address] [place] [address] Phone Care Team Providers Care Preschool Director Name Role Phone Nancy Avalos MD Primary Care Provider [phone] Nacny Avalos MD Primary Care Provider [phone] Reason for Referral * MRI/CAT Scan - Closed Specialty Diagnoses / Procedures Referred By Contac t Referred To Contact Radiology Diagnoses Abnormal reflexes Procedures MRI Thoracic Spine Jorge Avalos PA Phone: tel: fax: [email or web address] Referral ID Status Reason Start Date Expiration Date Visits Re quested Visits Authorized [id number] Closed 09/05/2020 09/05/2021 1 1 * MRI/CAT Scan - Closed Specialty Diagnoses / Procedures Referred By Contac t Referred To Contact Radiology Diagnoses Cervical radiculopathy Procedures MRI Cervical Spine Jorge Avalos PA Phone: tel: fax: [email or web address] [address] [address] Phone: tel: Referral ID Status Reason Start Date Expiration Date Visits Re quested Visits Authorized [id number] Closed 09/05/2020 09/05/2021 1 1 Encounter Details Date Type Department Care Team (Late st Contact Info) Description 09/05/2020 Ancillary Orders Virtual Department [address] [place] [address] Jorge Avalos PA [address] [place] [address] [email or web address] Cervical radiculopathy; Abnormal reflexes Social History Tobacco Use Types Packs/Day Years [...] 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 2.Mild T6-7 through T8-9 disc disease. Narrative 09/29/2020 12:15 PM EDT COMPARISON: None. TECHNIQUE: Exam performed on a 1.5 Rhona high-field MRI scanner. Sagittal T1 with and without gadolinium, T2 and STIR sequences were obtained. MRI THORACIC SPINE FINDINGS: Musculoskeletal: Vertebral heights are preserved. Minimal disc space narrowing at T6-7 through T8-9. Mild multilevel endplate osteophytes. No compression fractures. No malalignment. No destructive or suspicious bone lesions. Mild inferior endplate marrow edema at T10. Conus terminates at T12-L1. No spinal cord lesions or syrinx. No abnormal enhancement. No significant disc herniations, canal or neural foraminal stenosis. Paraspinal soft tissues are unremarkable. Additional findings: No incidental findings of concern. Procedure Note Sanjay Suero MD - 09/29/2020 COMPARISON: None. TECHNIQUE: Exam performed on a 1.5 Rhona high-field MRI scanner. SagittalT1 with and without gadolinium, T2 and STIR sequences were obtained. MRI THORACIC SPINE FINDINGS: Musculoskeletal: Vertebral heights are preserved. Minimal disc spacenarrowing at T6-7 through T8-9. Mild multilevel endplate osteophytes. Nocompression fractures. No malalignment. No destructive or suspicious bonelesions. Mild inferior endplate marrow edema at T10. Conus terminates [id number]. No spinal cord lesions or syrinx. No abnormal enhancement. Nosignificant disc herniations, canal or neural foraminal stenosis.Paraspinal soft tissues are unremarkable. Additional findings: No incidental findings of concern. IMPRESSION: 1.No findings to account for the patient's symptoms. 2.Mild T6-7 through T8-9 disc disease. Jorge JOVEL IMG MR XSPECIALTY Final Res ult * MRI CERVICAL SPINE (NEURO) WITH AND WITHOUT CONTRAST (09/29/2020 11:58 AM EDT) Anatomical Region Laterality Modality C-spine Magnetic Resonan ce 09/29/2020 12:0 7 PM EDT Impressions 09/29/2020 12:28 PM EDT 1.No evidence of myelitis. 2.Multilevel neural foraminal stenosis as above. No large disc herniation or canal stenosis. Narrative 09/29/2020 12:28 PM EDT COMPARISON: None. TECHNIQUE: Exam performed on a 1.5 Rhona high-field MRI scanner. Sagittal T1, T2 and STIR, axial T2* gradient echo and 3-D bright fluid sequences were obtained as well as sagittal T1 post-gadolinium sequences. MRI CERVICAL SPINE FINDINGS: Normal lordosis. Mild multilevel endplate spurring. Disc spaces are preserved. No compression fractures. No malalignment. No destructive or suspicious bone lesions. No abnormal enhancement. No cerebellar tonsil herniation, spinal cord lesions or syrinx. Paraspinal soft tissues are normal. Additional findings: No incidental findings of concern. C2-3: Unremarkable. C3-4: Small disc osteophyte complex and left uncovertebral spurring with mild facet arthropathy causing moderate neural foraminal stenosis. C4-5: Small disc osteophyte complex, bilateral uncovertebral spurring and mild left facet arthropathy. Mild bilateral neural foraminal stenosis. C5-6: Small disc osteophyte complex. Left uncovertebral spurring. Moderate left neural foraminal stenosis. C6-7: Minimal disc bulging. C7-T1: Unremarkable. Procedure Note Sanjay Suero MD - 09/29/2020 COMPARISON: None. TECHNIQUE: Exam performed on a 1.5 Rhona high-field MRI scanner. SagittalT1, T2 and STIR, axial T2* gradient echo and 3-D bright fluid sequenceswere obtained as well as sagittal T1 post-gadolinium sequences. MRI CERVICAL SPINE FINDINGS: Normal lordosis. Mild multilevel endplate spurring. Disc spaces arepreserved. No compression fractures. No malalignment. No destructive orsuspicious bone lesions. No abnormal enhancement. No cerebellar tonsilherniation, spinal cord lesions or syrinx. Paraspinal soft tissues arenormal. Additional findings: No incidental findings of concern. C2-3: Unremarkable. C3-4: Small disc osteophyte complex and left uncovertebral spurring withmild facet arthropathy causing moderate neural foraminal stenosis. C4-5: Small disc osteophyte complex, bilateral uncovertebral spurring andmild left facet arthropathy. Mild bilateral neural foraminal stenosis. C5-6: Small disc osteophyte complex. Left uncovertebral spurring.Moderate left neural foraminal stenosis. C6-7: Minimal disc bulging. C7-T1: Unremarkable. IMPRESSION: 1.No evidence of myelitis. 2.Multilevel neural foraminal stenosis as above. No large disc herniationor canal stenosis. Jorge JOVEL IMG MR XSPECIALTY Final Res ult documented in this encounter Visit Diagnoses Diagnosis Cervical radiculopathy Brachial neuritis or radiculitis nos Abnormal reflexes Abnormal reflex Cervical radiculopathy Brachial neuritis or radiculitis nos Abnormal reflexes Abnormal reflex documented in this encounter Additional Health Concerns Infection Onset Date Last Indicated Resolved Time CoV-Risk 11/09/2021 11/09/2021 11/20/2021 1:22 AM EDT documented as of this encounter Care Teams Preschool Director Relationship Specialty Start Date End Date Nancy Avalos MD [email or web address] PCP - General Family Medicine 06/30/18 01/10/24 Nancy Avalos MD [address] [place] [id number] PCP - General Family Medicine 01/11/24 documented as of this encounter Additional Source Comments The information contained in this document represents components of the legal health record. It is not the complete legal health record.[facility]
--- OUTSIDE RECORDS SUMMARY | 2025-04-21 06:19 | XMS_ITS | Clinical Summary ---
Author Organization [facility] Address [address] [facility] [address] [place] [id number] Phone Care Team Providers Care Seismic Prospecting Supervisor Name Role Phone Nancy Avalos MD Primary Care Provider Allergies No known active allergies Medications lisinopril (PRINIVIL,ZESTRI L) 10 MG tablet Take 25 mg by mouth daily. Active QUEtiapine (SEROQUEL) 25 MG tablet Take 25 mg by mouth 3 (three) times a day. Active sertraline (ZOLOFT) 100 MG tablet Take 150 mg by mouth daily. 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 He is hungry and would like to eat. I have advanced his diet to regular low-fat. Will likely discharge tomorrow. Uncomplicated alcohol dependence 06/30/2018 Assessment & Plan (07/02/2018 2:27 PM EST): No alcohol withdrawal symptoms on the phenobarbital protocol He thinks that his community supports and lifestyle changes will lead to ongoing sobriety. He also has a prescription for naltrexone from his primary. Pain in right testicle 06/30/2018 Assessment & Plan (07/02/2018 2:27 PM EST): Resolved PTSD (post-traumatic stress disorder) Assessment & Plan (06/30/2018 10:34 PM EST): Continue Seroquel and Zoloft. Essential hypertension Assessment & Plan (06/30/2018 10:33 PM EST): Continue lisinopril. Alcohol dependence GERD (gastroesophageal reflux disease) Assessment & Plan (06/30/2018 10:33 PM EST): Continue with our formulary PPI. 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 Not on file Not on anton e Last Filed Vital Signs Vital Sign Reading Time Taken Comments Blood Pressure 127/83 01/11/2024 10:27 AM EDT Pulse 79 01/11/2024 10:27 AM EDT Temperature 36.9 C (98.4 F) 01/11/2024 10:27 AM EDT Respiratory Rate 16 01/11/2024 10:27 AM EDT Oxygen Saturation 96% 01/11/2024 10:27 AM EDT Inhaled Oxygen Concentration - - Weight 108.9 kg (240 lb) 01/11/2024 10:27 AM EDT Height 175.3 cm (5' 9 ) 01/11/2024 10:27 AM EDT Body Mass Index 35.44 01/11/2024 10:27 AM EDT Plan of Treatment Health Maintenance Due Date Last Done Comments DEPRESSION SCREENING 1988 HEPATITIS C SCREENING 01/05/1994 HIV ONE-TIME SCREENING (18-6 5 YEARS) 01/05/1994 CREATININE LEVEL 07/02/2019 07/02/2018, 07/01/2018, 06/30/2018 POTASSIUM LEVEL 07/02/2019 07/02/2018, 07/01/2018, 06/30/2018 COLOGUARD 01/05/2021 COLONOSCOPY 01/05/2021 COLORECTAL CANCER SCREENING 01/05/2021 FIT TEST 01/05/2021 FOBT 01/05/2021 SIGMOIDOSCOPY 01/05/2021 VIRTUAL COLONOSCOPY 01/05/2021 SCREENING FOR DIABETES 07/02/2021 07/02/2018 LIPID PANEL 07/01/2023 07/01/2018 BLOOD PRESSURE 07/13/2024 01/11/2024 INFLUENZA VACCINE (#1) 2025 COVID-19 VACCINE (3 - 2024-2 6 season) 2025 11/29/2020, 11/01/2020 Adult Td,Tdap Booster 12/31/2025 01/01/2016 SMOKING STATUS SCREENING (On ce After 26 Yrs) Completed 11/09/2021 HEPATITIS A VACCINES Aged Out No long er eligible based on patient's age to complete this topic HIB VACCINES Aged Out No longer eligi ble based on patient's age to complete this topic MENINGOCOCCAL VACCINES (ACWY) Aged Out No longer eligible based on patient's age to complete this topic MENINGOCOCCAL VACCINES (B) Aged Out N o longer eligible based on patient's age to complete this topic PNEUMOCOCCAL VACCINES (0-49 years) Aged Out No longer eligible b ased on patient's age to complete this topic Medical Devices Not on file Procedures Procedure Name Priority Date/Time Associated Diagnosis Comments BASIC METABOLIC PANEL (BMP) Routine 07/02/2018 5:35 AM EST LIPID PANEL Routine 07/01/2018 5:35 AM EST from Last 3 Months or Most Recently Relevant to Health Maintenance Results * Basic metabolic panel (07/02/2018 5:35 AM EST) SODIUM 140 133 - 146 mmol/L [facility] CHLORIDE 101 96 - 108 mmol/L [facility] POTASSIUM 4.6 3.3 - 5.1 mmol/L [facility] CO2 29 21 - 35 mmol/L [facility] BUN 9 6 - 19 mg/dL [facility] CREATININE 1.10 0.5 - 1.5 mg/dL [facility] GLUCOSE 96 70 - 99 mg/dL [facility] CALCIUM 8.9 8.4 - 10.3 mg/dL [facility] EGFR 82 >59 mL/min/1.7 3m2 [facility] Comment:If patient is black, multiply result by 1.159. Estimated glomerular filtration rate calculated using the CKD-EPI equation. ANION GAP 15 10 - 20 mmol/L [facility] Blood 07/02/2018 5:35 AM EST 07/02/2018 5:57 AM EST us Romel Arriola MD LAB BLOOD BKR ORDERABLES Final R esult [address] [address] * (ABNORMAL) Lipid panel (07/01/2018 5:35 AM EST) HDL 50 mg/dL [facility] Comment: Interpretation <40 mg/dL: Low HDL cholesterol (major risk factor for CHD) Greater than or equal to 60 mg/dL: High HDL cholesterol ( negative risk factor for CHD) HDL - cholesterol is affected by a number of factors, e.g. smoking, excerise, hormones, sex and age. CHOLESTEROL 229 0 - 240 mg/dL [facility] TRIGLYCERIDES 131 30 - 160 mg/dL [facility] LDL 153(H) 50 - 129 mg/dL [facility] Comment: LDL levels in terms of risk for coronary heart disease: <100 mg/dL: Optimal 100-129 mg/dL: Near or above optimal 130-159 mg/dL: Borderline high 160-189 mg/dL: High >190 mg/dL: Very High CARDIAC RISK RATIO 4.6 3.4 - 5.0 [facility] Blood 07/01/2018 5:35 AM EST 07/01/2018 6:54 AM EST us Justin Rajput DO LAB BLOOD BKR ORDERABLES Flory l Result [address] [address] from Last 3 Months or Most Recently Relevant to Health Maintenance Insurance [employer] ADMIN[employer]ATORS [employer] ADMIN[employer]ATORS [employer] BENEFITS ADMINISTRATORS A [place] [employer] [employer]EF[employer]MINISTRATORS A [place] BENEFITS ADMINISTRATORS [employer] [place] [employer] B[employer]EF[employer]MINISTRATORS Advance Directives For more information, please contact: [phone] (9AM - 5PM [facility], Friday-Friday) * Full Code (Confirmed) (Latest Code Status on File) Date Activated Date Inactivated Comments 06/30/2018 11:02 PM 07/03/2018 4:48 PM Question Answer Comments Code Status Confirmed With: Patient Care Teams Seismic Prospecting Supervisor Relationship Specialty Start Date End Date Nancy Avalos MD [address] [place] [address] [email or web address] PCP - General Family Medicine 01/11/24 Additional Source Comments The information contained in this document represents components of the legal health record. It is not the complete legal health record.[facility]
--- OUTSIDE RECORDS SUMMARY | 2025-04-21 06:19 | XMS_ITS | Encounter Summary ---
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 on file Not on anton e documented as of this encounter Plan of Treatment Not on file documented as of this encounter Visit Diagnoses Not on filedocumented in this encounter Additional Health Concerns Infection Onset Date Last Indicated Resolved Time CoV-Risk 11/09/2021 11/09/2021 11/20/2021 1:22 AM EDT documented as of this encounter Care Teams Air Conditioning Service Technician Relationship Specialty Start Date End Date Nancy Avalos MD PCP - General Family Medicine 06/30/18 01/10/24 Nancy Avalos MD [address] [place] [address] [email or web address] PCP - General Family Medicine 01/11/24 documented as of this encounter Additional Source Comments The information contained in this document represents components of the legal health record. It is not the complete legal health record.[facility]
[2025-04-21 06:34] LABS: MANUAL DIFF FLAG NO
[2025-04-21 07:20] LABS: Hematocrit 46.7 % (42.0-52.0); Hemoglobin 16.5 g/dl (14.0-18.0); Imm Gran Abs Auto 0.03 X10*3/uL (0.00-0.03); Imm Gran Pct Auto 0.6 % (0.0-0.4); Lymphocytes Absolute Auto 1.8 X10*3/uL (1.2-4.9); Mean Corpuscular HGB Conc 35.3 g/dl (31.0-36.0); Mean Corpuscular Hemoglobin 32.3 pg (27.0-33.0); Mean Corpuscular Volume 91.4 fL (80.0-98.0); NRBC Abs Auto 0.000 X10*3/uL (0.0-0.012); NRBC Pct Auto 0.0 /100WBC (0.0-0.2); Platelet Count 173 X10*3/uL (160-400); Red Blood Count 5.11 X10*6/uL (4.60-5.80); White Blood Count 5.4 X10*3/uL (4.8-10.8)
[2025-04-21 07:50] LABS: Alanine Aminotransferase 32 U/L (0-40); Albumin Level 5.0 g/dL (3.5-5.0); Alkaline Phosphatase 65 U/L (39-117); Anion Gap 13 (12-20); Aspartate Amino Transferase 27 U/L (5-37); Blood Urea Nitrogen 23 mg/dL (9-16); Calcium 9.6 mg/dL (8.4-10.2); Carbon Dioxide 29 mmol/L (22-29); Chloride 101 mmol/L (96-108); Cholesterol 286 mg/dL (<200); Estimated Glomerular Filt Rate 59; HDL Cholesterol 67 mg/dL (>40); Potassium 5.2 mmol/L (3.3-5.1); Sodium 138 mmol/L (135-145); Total Protein 8.1 g/dL (6.5-8.0); Triglycerides 119 mg/dL (<150)
[2025-04-21 08:18] LABS: Reflex LDLD? No
== END 2025-04-21 06:17 | disposition home or self-care (01) ==
LOC: HO.LAB 06:16
PROVIDERS: PCP Family Medicine; Visit Provider Physician Assistant
DX: Z79.899 Other long term (current) drug therapy (principal)
CPT/HCPCS: 36415; 80053; 80061; 85025

== ENCOUNTER 2025-05-18 13:33 | Emergency (ER) | payer OTHER, SELFPAY ==
--- NOTE | ~2025-05-18 | US_ITS ---
CLINICAL HISTORY: liver cbd, GB, RUQ pain US abdomen limited Comparison: None provided Findings: The liver is normal in size and echotexture. There is no intrahepatic bile duct dilatation. The common duct is 3 mm in diameter. The gallbladder is normal. There is no sonographic Cuenca sign. IMPRESSION: 1. No acute abnormality. No cholelithiasis. This document has been electronically signed by: Ele Moreno MD on 05/18/2025 22:06:52
--- NOTE | ~2025-05-18 | XR_ITS ---
CLINICAL HISTORY: pain constipation 1 view abdomen Comparison: None provided Findings: No pneumoperitoneum or pneumatosis. Mild colonic stool burden. No abnormal calcifications. No acute fractures. IMPRESSION: Mild colonic stool burden. This document has been electronically signed by: Ele Moreno MD on 05/18/2025 22:05:26
[2025-05-18 13:48] VITALS: BP 115/64; PULSE 78; RESP 20; TEMP 36.1; O2SAT 97; BMI 34.3
--- NOTE | 2025-05-18 13:52 | ED_ITS ---
HPI - General Adult General Chief complaint: Abdominal Pain Stated complaint: abd and back pain Time Seen by Provider: 05/18/25 20:14 Source: patient Limitations: no limitations History of Present Illness ED Provider: Pina Ramos PA-C HPI narrative: 50-year-old male who is obese, presents with abdominal pain times 3-4 days. Patient initially reports right flank pain that radiates toward right mid abdomen, in reality his discomfort is somewhat generalized. Unable to describe the nature of his discomfort. Patient states he developed discomfort when he eats. However, denies nausea vomiting diarrhea or constipation. Denies history of kidney stones, mid back pain, dysuria or hematuria. Patient has not had any prior abdominal surgeries. Denies inability to pass flatus or abdominal distention. Related Data Previous Rx's ?Medication ?Instructions ?Recorded benzonatate 200 mg capsule 200 mg PO TID PRN cough #15 caps 08/07/23 cyclobenzaprine 5 mg tablet 5 mg PO Q8H PRN muscle spa sm #10 10/05/23 tabs lidocaine 5 % topical patch 1 patch topical DAILY #15 ea 10/05/23 (Lidoderm) naproxen 500 mg tablet 500 mg PO Q8-12H PRN pain (s mela 10/05/23 score 4-6) #14 tabs Allergies Allergy/AdvReac Type Severity Reaction Status Date / Time No Known Allergies Allergy Verified 05/18/25 13:50 Review of Systems 2 Review of Systems: Yes all other systems are reviewed and are negative Constitutional: Constitutional: Denies fatigue and Denies fever(s) Cardiovascular: Cardiovascular: Denies chest pain and Denies dyspnea Respiratory: Respiratory: Denies cough and Denies dyspnea Gastrointestinal: Gastrointestinal: Reports abdominal pain, Denies constipation, Denies diarrhea, Denies nausea and Denies vomiting Genitourinary: Genitourinary: Denies hematuria, Denies dysuria and Denies flank pain Musculoskeletal: Musculoskeletal: Denies back pain Endocrine: Endocrine: Denies fatigue [facility] Past Medical History Attestation statement: The following information was validated with the patient. Medical History HTN (hypertension) Social History Social History Advance Directives: No Advance Directives Information Provided: Yes Do you have a plan to hurt others: No Plan Physical Exam ED Vital Signs: Vital Signs - 24 hr 05/18/25 13:48 05/18/25 20:03 Temperature 96.9 F 97.6 F Pulse Rate 78 65 Respiratory Rate 20 16 Blood Pressure 115/64 134/69 Pulse Oximetry 97 96 Oxygen Delivery Method Room Air Room Air BMI result Body Mass Index 34.3 Const Other: Alert well-appearing Orientation/consciousness: patient oriented x3 Resp Effort & Inspection: normal respiratory effort Cardio Other: Normal peripheral perfusion GI Other: Abdomen is soft, nondistended, generalized tenderness to palpation without guarding to deep palpation General: Yes no CVA tenderness Back/Spine/Pelvis Back: no CVA tenderness Skin Other: Warm dry no rash Neuro General: patient oriented x3, gait normal, no focal motor deficits and CN's II- XI intact bilaterally Psych Other: Cooperative Course Course Course Narrative: RME: 50 year male presents to ED for right-sided low back flank pain radiating to right abdominal since Friday. Patient states pain after eating. Patient denies any genitourinary symptoms. Labs ordered Medications Administered Discontinued Medications Generic Name Dose Route Start Last Admin Trade Name Freq PRN Reason Stop Dose Admin Ketorolac Tromethamine 15 mg 05/18/25 20:33 05/18/25 20:58 Ketorolac Tromethamine 15 Mg/Ml Vial IM 05/18/25 20:34 15 mg ONCE ONE Administration Oxycodone HCl 5 mg 05/18/25 20:34 05/18/25 20:57 Oxycodone Hcl Immed Release 5 Mg Tablet PO 05/18/25 20:35 5 mg ONCE ONE Administration Medical Decision Making Medical Decision Making [facility] Narrative: 50-year-old male who is obese, presents with abdominal pain times 3-4 days. Patient initially reports right flank pain that radiates toward right mid abdomen, in reality his discomfort is somewhat generalized. Unable to describe the nature of his discomfort. Patient states he developed discomfort when he eats. However, denies nausea vomiting diarrhea or constipation. Denies history of kidney stones, mid back pain, dysuria or hematuria. Patient has not had any prior abdominal surgeries. Denies inability to pass flatus or abdominal distention. No relevant chronic issues History: Per patient I have considered the following differential diagnoses: Pyelonephritis, renal colic, biliary colic, cholecystitis, gastritis/GERD, constipation, bowel obstruction Plan: Patient here with a completely normal labs and an unremarkable abdominal exam, with no active GI or symptoms, he is likely constipated, adding a KUB. I am also considering biliary colic, he is having postprandial discomfort however no nausea vomiting. Adding an ultrasound of the right upper quadrant. He is not having obstructive symptoms that would warrant a CT scan. I have independently reviewed the following tests: Labs: No leukocytosis, not anemic, no electrolyte abnormality noted, LFTs normal, lipase normal, urine not infected no hematuria Ultrasound right upper quadrant: Findings: The liver is normal in size and echotexture. There is no intrahepatic bile duct dilatation. The common duct is 3 mm in diameter. The gallbladder is normal. There is no sonographic Cuenca sign. IMPRESSION: 1. No acute abnormality. No cholelithiasis. KUB:Findings: No pneumoperitoneum or pneumatosis. Mild colonic stool burden. No abnormal calcifications. No acute fractures. IMPRESSION: Mild colonic stool burden. Differential Diagnosis Differential Diagnoses: The differential diagnosis associated with the presentation includes See [facility] Admission/Observation Consideration of admission/observation: Escalation of care including admission/observation considered Not applicable Lab Data [facility] Lab Attestation statement: I reviewed the patient's lab results. 05/18/25 17:26 05/18/25 17:26 Labs: Lab Results 05/18/25 05/18/25 Range/Units 17:26 17:31 WBC 7.6 (4.8-10.8) X10*3/uL RBC 4.69 (4.60-5.80) X10*6/uL Hgb 15.3 (14.0-18.0) g/dl Hct 42.9 (42.0-52.0) % MCV 91.5 (80.0-98.0) fL MCH 32.6 (27.0-33.0) pg MCHC 35.7 (31.0-36.0) g/dl RDW 11.5 (11.0-16.0) % Plt Count 159 L (160-400) X10*3/uL MPV 9.1 L (9.4-12.4) fL Immature Gran % (Auto) 0.4 (0.0-0.4) % Neut % (Auto) 62.5 (45-73) % Lymph % (Auto) 27.8 (20-40) % [place] % (Auto) 7.7 (2-11) % Eos % (Auto) 1.2 (0-4) % Baso % (Auto) 0.4 (0-2) % Lymph # (Auto) 2.1 (1.2-4.9) X10*3/uL [place] # (Auto) 0.6 (0.1-1.2) X10*3/uL Eos # (Auto) 0.1 (0.0-0.4) X10*3/uL Baso # (Auto) 0.0 (0.0-0.2) X10*3/uL Abs Immat Gran (auto) 0.03 (0.00-0.03) X10*3/uL Absolute Neuts (auto) 4.8 (2.0-8.3) x10*3/uL Absolute Nucleated RBC 0.000 (0.0-0.012) X10*3/uL Nucleated RBC % (auto) 0.0 (0.0-0.2) /100WBC Sodium 139 (135-145) mmol/L Potassium 4.0 D (3.3-5.1) mmol/L Chloride 105 (96-108) mmol/L Carbon Dioxide 25 (22-29) mmol/L Anion Gap 13 (12-20) BUN 22 H (9-16) mg/dL Creatinine 1.15 (0.5-1.4) mg/dL Estim Creat Clear Calc 92.9 Estimated GFR > 60 Random Glucose 102 (60-115) mg/dL Calcium 9.7 (8.4-10.2) mg/dL Total Bilirubin 0.6 (0.0-1.0) mg/dL AST 25 (5-37) U/L ALT 27 (0-40) U/L Alkaline Phosphatase 60 (39-117) U/L Total Protein 7.8 (6.5-8.0) g/dL Albumin 4.8 (3.5-5.0) g/dL Lipase 40 (8-78) U/L Urine Color Yellow Urine Appearance Clear Urine pH 6.0 (5.0-9.0) Ur Specific Roberts 1.025 (1.005-1.025) Urine Protein Trace (Neg-Trace) mg/dL Urine Glucose (UA) Negative (Negative) mg/dL Urine Ketones Trace (Negative) mg/dL Urine Blood Negative (Negative) Urine Nitrite Negative (Negative) Ur Leukocyte Esterase Negative (Negative) Radiology Impression Discussion of test interpretation with radiology: I have reviewed the radiologist's reading. Discharge Plan Discharge Clinical Impression: Constipation Patient Disposition: Home, Self-Care Instructions: Constipation (ED) Additional Instructions: You had no lab abnormalities. Your urine is not infected. The ultrasound of the abdomen was normal. The x-ray revealed that you are constipated. See home care instructions. You can use [id number]-[id number] Colace, this is a stool softener twice a day. Also use [id number]-[id number] MiraLax, 2 to 3 times a day, until you begin having multiple bowel movements. Follow up with your primary care provider as needed. Prescriptions: No Action cyclobenzaprine 5 mg tablet 5 mg PO Q8H PRN (Reason: muscle spasm) Qty: 10 0RF naproxen 500 mg tablet 500 mg PO Q8-12H PRN (Reason: pain (scale score 4-6)) Qty: 14 0RF lidocaine [Lidoderm] 5 % adhesive patch,medicated 1 patch topical DAILY Qty: 15 0RF Rx Instructions: leave on most painful area for up to 12 hrs benzonatate 200 mg capsule 200 mg PO TID PRN (Reason: cough) Qty: 15 0RF Stand Alone Forms: Work/School Release Interventions: ED Discharge Assessment Last Done: 05/18/25 22:37 Discharge Date/Time: 05/18/25 22:38 Print Language: Nigerian
[2025-05-18 17:42] LABS: MANUAL DIFF FLAG NO
[2025-05-18 17:43] LABS: Hematocrit 42.9 % (42.0-52.0); Hemoglobin 15.3 g/dl (14.0-18.0); Imm Gran Abs Auto 0.03 X10*3/uL (0.00-0.03); Imm Gran Pct Auto 0.4 % (0.0-0.4); Lymphocytes Absolute Auto 2.1 X10*3/uL (1.2-4.9); Mean Corpuscular HGB Conc 35.7 g/dl (31.0-36.0); Mean Corpuscular Hemoglobin 32.6 pg (27.0-33.0); Mean Corpuscular Volume 91.5 fL (80.0-98.0); NRBC Abs Auto 0.000 X10*3/uL (0.0-0.012); NRBC Pct Auto 0.0 /100WBC (0.0-0.2); Platelet Count 159 X10*3/uL (160-400); Red Blood Count 4.69 X10*6/uL (4.60-5.80); White Blood Count 7.6 X10*3/uL (4.8-10.8)
[2025-05-18 17:45] LABS: Appearance Urine Clear; Glucose Urine UA Negative (Negative); PH 6.0 (5.0-9.0); Specific Gravity - Urine 1.025 (1.005-1.025)
[2025-05-18 17:59] LABS: Alanine Aminotransferase 27 U/L (0-40); Albumin Level 4.8 g/dL (3.5-5.0); Alkaline Phosphatase 60 U/L (39-117); Anion Gap 13 (12-20); Aspartate Amino Transferase 25 U/L (5-37); Blood Urea Nitrogen 22 mg/dL (9-16); Calcium 9.7 mg/dL (8.4-10.2); Carbon Dioxide 25 mmol/L (22-29); Chloride 105 mmol/L (96-108); Creatinine Clr Calc Pharmacy 92.9; Estimated Glomerular Filt Rate > 60; Lipase 40 U/L (8-78); Potassium 4.0 mmol/L (3.3-5.1); Sodium 139 mmol/L (135-145); Total Protein 7.8 g/dL (6.5-8.0)
--- OUTSIDE RECORDS SUMMARY | 2025-05-18 18:57 | XMS_ITS | Encounter Summary ---
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 on file Not on anton e documented as of this encounter Plan of Treatment Not on file documented as of this encounter Visit Diagnoses Not on filedocumented in this encounter Additional Health Concerns Infection Onset Date Last Indicated Resolved Time CoV-Risk 11/09/2021 11/09/2021 11/20/2021 1:22 AM EDT documented as of this encounter Care Teams Towel Hemmer Relationship Specialty Start Date End Date Nancy Avalos MD PCP - General Family Medicine 06/30/18 01/10/24 Nancy Avalos MD [address] [place] [address] [email or web address] PCP - General Family Medicine 01/11/24 documented as of this encounter Additional Source Comments The information contained in this document represents components of the legal health record. It is not the complete legal health record.[facility]
--- OUTSIDE RECORDS SUMMARY | 2025-05-18 18:58 | XMS_ITS | Encounter Summary ---
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 It is not the complete legal health record.[facility]
--- OUTSIDE RECORDS SUMMARY | 2025-05-18 18:58 | XMS_ITS | Encounter Summary ---
Author Organization [facility] Address [address] [place] [address] Phone Care Team Providers Care Medical Secretary Teacher Name Role Phone Nancy Avalos MD Primary Care Provider [phone] Nancy Avalos MD Primary Care Provider [phone] Encounter Details Date Type Department Care Team (Late st Contact Info) Description 09/05/2020 Procedure Pass [facility], [address] [place] [address] Social History Tobacco Use Types Packs/Day Years [...] documented as of this encounter Care Teams Medical Secretary Teacher Relationship Specialty Start Date End Date Nancy Avalos MD PCP - General Family Medicine 06/30/18 01/10/24 Nancy Avalos MD [address] [place] [address] [email or web address] PCP - General Family Medicine 01/11/24 documented as of this encounter Additional Source Comments The information contained in this document represents components of the legal health record. It is not the complete legal health record.[facility]
--- OUTSIDE RECORDS SUMMARY | 2025-05-18 18:58 | XMS_ITS | Encounter Summary ---
Author Organization [facility] Address [address] [place] [address] Phone Care Team Providers Care Spinning Supervisor Name Role Phone Nancy Avalos MD Primary Care Provider [phone] Nancy Avalos MD Primary Care Provider [phone] Reason for Referral * MRI/CAT Scan - Closed Specialty Diagnoses / Procedures Referred By Contac t Referred To Contact Radiology Diagnoses Abnormal reflexes Procedures MRI Thoracic Spine Jorge Avalos PA Phone: tel: fax: [email or web address] Referral ID Status Reason Start Date Expiration Date Visits Re quested Visits Authorized [id number] Closed 09/05/2020 09/05/2021 1 1 * MRI/CAT Scan - Closed Specialty Diagnoses / Procedures Referred By Contac t Referred To Contact Radiology Diagnoses Cervical radiculopathy Procedures MRI Cervical Spine Jorge Avalos PA Phone: tel: fax: [email or web address] [address] [address] Phone: tel: Referral ID Status Reason Start Date Expiration Date Visits Re quested Visits Authorized [id number] Closed 09/05/2020 09/05/2021 1 1 Encounter Details Date Type Department Care Team (Late st Contact Info) Description 09/05/2020 Ancillary Orders Virtual Department [address] [place] [address] Jorge Avalos PA [address] [place] [address] [email or web address] Cervical radiculopathy; Abnormal reflexes Social History Tobacco [...] 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 Conus terminates [id number]. No spinal cord lesions or syrinx. No [...] documented as of this encounter Care Teams Spinning Supervisor Relationship Specialty Start Date End Date Nancy Avalos MD PCP - General Family Medicine 06/30/18 01/10/24 Nancy Avalos MD [address] [place] [id number] PCP - General Family Medicine 01/11/24 documented as of this encounter Additional Source Comments The information contained in this document represents components of the legal health record. It is not the complete legal health record.[facility]
--- OUTSIDE RECORDS SUMMARY | 2025-05-18 18:58 | XMS_ITS | Encounter Summary ---
Author Organization [facility] Address [address] [facility] [address] [place] [address] Phone Care Team Providers Care Computer Technologist Name Role Phone Nancy Avalos MD Primary Care Provider [phone] Nancy Avalos MD Primary Care Provider [phone] Encounter Details Date Type Department Care Team (Latest Contact Info) Description 02/24/2023 Transcribe Orders Virtual Department [address] [place] [address] Roni Cuenca MD [address] [place] [id number] [email or web address] Left shoulder pain, unspecified chronicity (Primary Dx) [...] 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 on file Not on anton e documented as of this encounter Plan of Treatment Not on file documented as of this encounter Visit Diagnoses Diagnosis Left shoulder pain, unspecified chronicity- Primary documented in this encounter Care Teams Computer Technologist Relationship Specialty Start Date End Date Nancy Avalos MD [email or web address] PCP - General Family Medicine 06/30/18 01/10/24 Nancy Avalos MD [address] [place] [address] PCP - General Family Medicine 01/11/24 documented as of this encounter Additional Source Comments The information contained in this document represents components of the legal health record. It is not the complete legal health record.[facility]
--- OUTSIDE RECORDS SUMMARY | 2025-05-18 18:58 | XMS_ITS | Clinical Summary ---
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 Estimated glomerular filtration rate calculated using the CKD-EPI equation. ANION GAP 15 10 - 20 mmol/L [facility] Blood 07/02/2018 5:35 AM EST 07/02/2018 5:57 AM EST us Romel Arriola MD LAB BLOOD BKR ORDERABLES Final R esult [address] [address] * (ABNORMAL) Lipid panel (07/01/2018 5:35 AM EST) HDL 50 mg/dL [facility] Comment: Interpretation <40 mg/dL: Low HDL cholesterol (major risk factor for CHD) Greater than or equal to 60 mg/dL: High HDL cholesterol ( negative risk factor for CHD) HDL - cholesterol is affected by a number of factors, e.g. smoking, excerise, hormones, sex and age. CHOLESTEROL 229 0 - 240 mg/dL [facility] TRIGLYCERIDES 131 30 - 160 mg/dL [facility] LDL 153(H) 50 - 129 mg/dL [facility] Comment: LDL levels in terms of risk for coronary heart disease: <100 mg/dL: Optimal 100-129 mg/dL: Near or above optimal 130-159 mg/dL: Borderline high 160-189 mg/dL: High >190 mg/dL: Very High CARDIAC RISK RATIO 4.6 3.4 - 5.[address] [facility] Blood 07/01/2018 5:35 AM EST 07/01/2018 6:54 AM EST us Justin Rajput DO LAB BLOOD BKR ORDERABLES Flory l Result [address] [address] from Last 3 Months or Most Recently Relevant to Health Maintenance Insurance [employer] myaNUMBER BENEFITS ADMINISTRATORS myaNUMBER BENEFITS ADMINISTRATORS myaNUMBER BENEFITS ADMINISTRATORS statusboom [place] statusboom [employer]EFITS ADMINISTRATORS Advance Directives For more information, please contact: [phone] (9AM - 5PM [facility], Friday-Friday) * Full Code (Confirmed) (Latest Code Status on File) Date Activated Date Inactivated Comments 06/30/2018 11:02 PM 07/03/2018 4:48 PM Question Answer Comments Code Status Confirmed With: Patient Care Teams Furnace Installer Helper Relationship Specialty Start Date End Date Nancy Avalos MD [address] [place] [address] [email or web address] PCP - General Family Medicine 01/11/24 Additional Source Comments The information contained in this document represents components of the legal health record. It is not the complete legal health record.[facility]
[2025-05-18 20:03] VITALS: BP 134/69; PULSE 65; RESP 16; TEMP 36.4; O2SAT 96
[2025-05-18] MEDS: oxyCODONE HCl Immed Release 5 MG TABLET PO (20:57)
[2025-05-18 22:37] VITALS: BP 134/69; PULSE 65; RESP 16; TEMP 36.4; O2SAT 96
== END 2025-05-18 22:38 | disposition home or self-care (01) ==
PROVIDERS: Physician Assistant; Emergency Provider Emergency Medicine; PCP Family Medicine
DX: K59.00 Constipation, unspecified (principal); E66.9 Obesity, unspecified; Z68.34 Body mass index [BMI] 34.0-34.9, adult; I10 Essential (primary) hypertension; Z79.899 Other long term (current) drug therapy
CPT/HCPCS: 36415; 74018; 76705; 80053; 81003; 83690; 85025; 96372; 99284; J1885

== ENCOUNTER → 2025-05-18 20:33 | Outpatient (BNV) | payer OTHER, SELFPAY | PROVIDERS: Emergency Provider Emergency Medicine; PCP Family Medicine; Visit Provider Student in an Organized Health Care Education/Training Program | DX: R10.11 Right upper quadrant pain (principal); K59.00 Constipation, unspecified | CPT/HCPCS: 74018; 76705 ==